=== PATIENT | female | born 1955 | race Caucasian/White ===

== ENCOUNTER → 2016-10-04 | Outpatient (CLI) | payer OTHER, BC, MEDICARE ==
[~2016-10-04] MED LIST: ADIPEX-P37.5 M2 PO; CIPRO 500MG TA500 MG PO; CRESTOR10 MG PO; LEXAPRO 10 MG T10 MG PO; MEDROL 4MG. DOSE4 MG PO; MIRALAX17 GM/PACK PO; TRAZODONE 50MG50 MG PO; TYLENOL W/CODEI1 TA2 PO; VOLTAREN75 MG PO
== END ==
LOC: RAD 07:57
DX: M25.572 Pain in left ankle and joints of left foot (principal)

== ENCOUNTER → 2016-12-18 | Outpatient (CLI) | payer OTHER, BC, MEDICARE ==
[~2016-12-18] MED LIST changes: +HYDROCODONE1 TABLET PO; +MAXZIDE 25 MG-31 TAB PO; +SIMVASTATIN20 MG PO
--- NOTE | 2016-12-20 10:05 | RADIOLOGY REPORT PS360 ---
CT EXT.LOWER-LT-W/O CONTRAST INDICATION: Follow-up fracture of the talus LT TALOR FRACTURE ORDERING PHYSICIAN: ADRIEN NEFF DPM PATIENT AGE: 61 years COMPARISON: MRI of 10/04/2016 TECHNIQUE: Axial images are obtained without contrast. Sagittal and coronal reformatted images are reviewed as well. FINDINGS: There is vague cortical lucency involving the medial mid aspect of the talus at the base of the neck of the talus just superior to the sinus Tarsi consistent with some minimal residual fracture line. There is no evidence of displacement or other significant anomalies.. 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 Normal alignment of the tarsals. No soft tissue mass or abnormal fluid collection is evident. IMPRESSION: 1. Nondisplaced fracture noted at the medial aspect of the neck of the talus just superior to the sinus Tarsi
== END ==
LOC: RAD 12-17 13:30
DX: S92.102A Unspecified fracture of left talus, initial encounter for closed fracture (principal); M87.072 Idiopathic aseptic necrosis of left ankle

== ENCOUNTER 2017-02-18 13:10 | Day surgery (SDC) | payer BC, MEDICARE ==
--- NOTE | 2017-02-18 15:19 | Operative Note ---
Colonoscopy ([place]) Procedure date: 02/18/17 Date of : 57 Procedure:Colonoscopy Colonoscopy with cold biopsies Indications: Mrs. Krishnamurthy is a 61-year-old female who is here for follow-up colonoscopy. The patient recently had a flareup which responded to prednisone and continued Lialda. She is clinically better. She did have a flexible sigmoidoscopy and June 2016 and had monopolar ablation of internal hemorrhoids. She has a long history of chronic ulcerative colitis and has negative p-ANCA. She had a colonoscopy in 2009 and again in March 2013 showing remission. She had a flareup so her last colonoscopy was March 2014 but this examination also showed no active colitis. She does state that her mother had colon cancer. She has not had any recent rectal bleeding, abdominal pain or weight loss. Her recent blood work showed normal complete blood count with a sedimentation rate of 11. She had normal chemistries. She had mild iron deficiency with iron saturation of 13 percent and total serum iron of 41. Her C-reactive protein was slightly elevated at 6.8. She had mild vitamin D deficiency. Performing Provider: John Be MD Referrring Provider: Brad Mcconnell M.D. Sedation: Fentanyl 200 mg IV/Versed 9 mg IV Procedure: Prior to the procedure, a history and physical exam was performed, and patient medications and allergies were reviewed. The risks and benefits of the procedure and the sedation options and risks were discussed with the patient. All questions were answered and informed consent was obtained. Patient identification and proposed procedure were verified by the physician and the nurse. The patient was placed in a left lateral decubitus position. Throughout the procedure, the patient's blood pressure, pulse, and oxygen saturations were monitored continuously. Findings: On digital rectal examination there was normal rectal tone. There were no external hemorrhoids. The colonoscope was introduced through the anal canal to the rectum and advanced to the cecum. The ileocecal valve and appendiceal orifice were identified. The scope was advanced a short distance into the ileum which appeared grossly normal. The scope was then withdrawn into the colon. The cecum, ascending, transverse, descending, sigmoid and rectum were grossly normal. There was some minor loss of vascular pattern and very mild granularity but there were no mucosal abnormalities identified. Multiple biopsies were taken from the RIGHT and LEFT colon to rule out mild colitis. Upon retroflexion within the rectum there were grade 1 internal hemorrhoids with some fibrosis from prior hemorrhoid ablation. Impressions: 1. Minimally active chronic ulcerative colitis 2. Grade 1 internal hemorrhoids Recommendations: I would continue Lialda as maintenance therapy. I would continue surveillance at a 3 year interval based upon her strong family history (mother with colon cancer ) and chronic ulcerative colitis for greater than 15 years. Complications: None EBL (ml): 0 at 4839
[2017-02-18 16:40] VITALS: BP 132/76
== END 2017-02-18 16:35 | disposition home or self-care (01) ==
LOC: SDC 13:10
PROVIDERS: Internal Medicine Gastroenterology
PROC: 0DBF8ZX Excision of Right Large Intestine, Via Natural or Artificial Opening Endoscopic, Diagnostic (ICD-10-PCS; 2017-02-18)
PROC: 0DBG8ZX Excision of Left Large Intestine, Via Natural or Artificial Opening Endoscopic, Diagnostic (ICD-10-PCS; principal; 2017-02-18 14:00)
DX: K51.90 Ulcerative colitis, unspecified, without complications (principal); K64.0 First degree hemorrhoids; K62.89 Other specified diseases of anus and rectum; Z80.0 Family history of malignant neoplasm of digestive organs; Z79.899 Other long term (current) drug therapy